=== PATIENT | female | born 1955 | race Caucasian/White ===

== ENCOUNTER → 2024-05-31 22:24 | Day surgery (SDC) | payer OTHER, SELFPAY ==
[2024-05-31 18:27] VITALS: BMI 37.5
--- NOTE | 2024-05-31 19:52 | ED.GENMED ---
History of Present Illness
General
Chief Complaint: Esophageal Problem
Source: patient
Exam Limitations: none
Time Seen by Provider: 05/31/24 19:44
Nursing documentation reviewed up to this point in time: agreed with
History of Present Illness
History of Present Illness:
Patient presents to ED secondary to persistent sensation of food being stuck sensation and difficulty tolerating saliva, after 3 bites of Frank B sandwich this afternoon at 12:00. Patient has attempted several water as well as jose angel gladys, without
relief in symptoms. Denies difficulty breathing. Denies fever. Denies trauma. Denies nausea or vomiting. Denies previous history of similar symptoms.
Past History
Past History
ED Past Medical History: Asthma, HTN, Hypercholesterolemia, NIDDM and Hypothyroidism
ED Past Surgical History: None
Social History
Tobacco: Non-smoker
Alcohol: None
Drug: None
Personal:
Living: with family
Family History
Family History: Other (reviewed and non-contributory)
Review of Systems
Review of Systems
Allergies reviewed?: Yes
All Other Systems: ROS reviewed and negative except as documented in HPI and ROS
Constitutional: Reports no symptoms
ABD/GI: Reports other (food impaction)
Musculoskeletal: Reports no symptoms
Skin: Reports no symptoms
Neurological: Reports no symptoms
Phy Exam
Physical Exam
Physical Exam:
Physical Exam
General: mild distress, not acutely ill. afebrile
Head: nc/at. eomi
Neck: supple. no meningeal signs. normal posterior pharynx
Heart: s1/s2 regular rate and rhythm, no murmur. equal radial pulses.
Lungs: no acute respiratory distress. clear bilaterally
Abdomen: normal bowel sounds. not tender.
Neuro: alert and oriented. no focal neurological deficits
Skin: no rash
Psychiatric: well kept. interactive and cooperative
Extremities: no edema. no calf tenderness.
Course
Orders/Labs/Results
Orders:
Orders
05/31/24 19:49
Glucagon [GlucaGen] 1 mg IV NOW STA
05/31/24 21:17
Dexamethasone Sod Phosphate [Decadron] 20 mg .ROUTE .STK-MED ONE
Lidocaine HCl/Pf [Xylocaine-Mpf 1% Vial] 50 mg .ROUTE .STK-MED ONE
Ondansetron Injectable [Zofran] 4 mg .ROUTE .STK-MED ONE
Propofol [Diprivan] 20 ml .ROUTE .STK-MED
Rocuronium Galien [Rocuronium] 50 mg .ROUTE .STK-MED ONE
Sugammadex Sodium [Bridion] 200 mg .ROUTE .STK-MED ONE
05/31/24 21:21
Glycopyrrolate [Robinul] 0.2 mg .ROUTE .STK-MED ONE
Phenylephrine HCl/0.9% NaCl [Prem-Synephrine] 1,000 mcg .ROUTE .STK-MED ONE
05/31/24 21:22
Propofol [Diprivan] 20 ml .ROUTE .STK-MED
05/31/24 22:12
Activity As Directed
Activity Level: Bedrest
Comment: bedrest until awake & alert then resume previous activity level
Vital Signs As Directed
Frequency: Post-operative guidelines
Vital Signs
Initial and Last Documented VS:
Initial Vital Signs
Temp Pulse Resp Pulse Ox
97.9 F 87 17 99
05/31/24 18:33 05/31/24 18:33 05/31/24 18:33 05/31/24 18:33
Last Documented Vital Signs
Temp Pulse Resp BP Pulse Ox
97.2 F 79 21 185/93 94
05/31/24 22:45 05/31/24 22:45 05/31/24 22:45 05/31/24 22:50 05/31/24 22:50
MDM/Problems Addressed
MDM/Problems Addressed:
Pt given glucagon in ED without improvement, still unable to tolerate sip of water.
Discussed with on-call GI physician, - will proceed to GI Lab
*Critical Care Note
Total Time (30-74mins, 75-104mins- exclusive of procedures): Not Applicable
ED Attending Note
-
Portions of this chart may have been created with voice recognition software.� Occasional wrong word or��sound alike� substitutions may have occurred due to the inherent limitations of voice recognition software.
Discharge Plan
Departure
Patient Disposition: GI LAB
Date of Disposition: 05/31/24
Time of Disposition: 21:07
Admit to: GI lab
Presentation/result/management discussed w/ accepting MD/DO:
Discharge Problem:
Food impaction of esophagus
Interventions
Interventions:
*Risk Screen - Suicide Last Done: 05/31/24 20:52
*General Assessment Last Done: 05/31/24 20:52
*Neglect/Abuse Screening Last Done: 05/31/24 20:52
*ED COVID-19 Vaccine History Last Done: 05/31/24 20:52
*Nursing Disposition Last Done: 05/31/24 21:37
OI-Rlkjmw-Bsfzrzezyx Assessment Last Done: 05/31/24 20:52
ED-EENT Assessment Last Done: 05/31/24 20:52
[2024-05-31] MEDS: GlucaGen 1 MG IV (20:27)
[2024-05-31 21:00] VITALS: BP 140/62
--- NOTE | 2024-05-31 21:45 | CON.GI ---
Consultation
-
Date/Time Consultation Requested: 05/31/24
Date/Time Consultation Performed: 05/31/24
Requesting Provider:
Performing Provider:
Reason for Consultation: food bolus impaction
Medical History
Chief Complaint / HPI
Chief Complaint: food bolus impaction
History of Present Illness:
This is a 68-year-old female with past medical history of asthma hypertension hyperlipidemia diabetes hypothyroidism who presented to the ER with food bolus impaction. She says she was on a wine tour earlier today and had eaten a couple of bites
Frank B sandwich this afternoon at 12:00. She says she tried warm water, jose angel gladys and hot tea without any improvement of symptoms and she has not been able to swallow and has been spitting up saliva since then. Prior to this she has not had any
symptoms of dysphagia, no symptoms of acid reflux. she never had a colonoscopy or endoscopy in the past. She also currently denies any chest pain or shortness of breath no abdominal pain.
Past Medical History
Past Medical History: Other (Asthma, HTN, Hypercholesterolemia, NIDDM and Hypothyroidism)
Past Surgical History: Other (none)
Social History
Tobacco: Non-Smoker
Alcohol: Occasional
Drug: None
Family History
Family History: Other (FH breast cancer, no colon cancer)
Allergies / Home Medications
Allergy/AdvReac Type Severity Reaction Status Date / Time
No Known Allergies Allergy Verified 05/31/24 18:32
�Medication �Instructions �Recorded
atorvastatin 10 mg tablet 10 mg PO DAILY 04/05/18
levothyroxine 125 mcg tablet 125 mcg PO DAILY 04/05/18
aspirin 81 mg tablet,delayed 81 mg PO DAILY ##30 04/09/18
release (Adult Low Dose Aspirin)
albuterol sulfate 90 mcg/actuation 2 puff inhalation R [id number] PRN sob 05/31/24
aerosol inhaler
budesonide-formoterol HFA 160 2 puff inhalation R BID 05/31/24
mcg-4.5 mcg/actuation aerosol
inhaler (Symbicort)
doxazosin 2 mg tablet 2 mg PO DAILY 05/31/24
insulin aspart U-100 100 unit/mL 28 units SC TID 05/31/24
(3 mL) subcutaneous pen (Novolog
FlexPen U-100 Insulin aspart)
insulin detemir U-100 100 unit/mL 50 unit SC HS 05/31/24
(3 mL) subcutaneous pen (Levemir
FlexPen)
lisinopril 20 2 tab PO DAILY 05/31/24
mg-hydrochlorothiazide 12.5 mg
tablet
metformin 500 mg tablet 1,000 mg PO BID 05/31/24
omega 7-cpx-bco-fish oil 1,000 mg 1 cap PO DAILY 05/31/24
(120 mg-180 mg) capsule (Fish Oil)
temazepam 30 mg capsule 30 mg PO HS 05/31/24
therapeutic multivitamin 1 tab PO DAILY 05/31/24
Review of Systems
-
All other systems: A 12 pt ROS was Negative except as stated above in HPI
Vital Signs
Temp Pulse Resp BP Pulse Ox
97.9 F 87 17 140/62 99
05/31/24 18:33 05/31/24 18:33 05/31/24 18:33 05/31/24 21:00 05/31/24 18:33
Physical Exam
Exam
General: No Apparent Distress and Other (spitting up saliva into bag)
HEENT: Normocephalic
Respiratory: Clear
Cardiac: S1/S2
GI: Soft, Non Tender, Non Distended and Normal Bowel Sounds
Musculoskeletal: No Clubbing
Skin: Warm
Neuro: Awake, Alert and Oriented
Psych: Calm
Results
Diagnostic Image Results:
Prior GI Procedures:
EGD: none
Colonoscopy: none
Assessment / Plan
-
Food bolus impaction after she had eaten a couple of bites of beef sandwich around 12 noon today. She has not been able to swallow her secretions since then and has been spitting up into a cup. Will schedule her for urgent endoscopy with food
bolus removal.
-
-
Thank you for consultation and allowing me to participate in the patient's care. Please call the refrigeration engineering teacher GI physician during the after hours with any questions or concerns.
[2024-05-31 22:20] VITALS: BP 145/62; BP 150/88
[2024-05-31 22:30] VITALS: BP 165/91
[2024-05-31 22:45] VITALS: BP 167/76
[2024-05-31 22:50] VITALS: BP 185/93
== END ==
LOC: EMR 18:27 → SDS 22:24
PROVIDERS: ATTENDING PHYSICIAN Emergency Medicine; FAMILY PHYSICIAN Family Medicine
DX: T18.128A Food in esophagus causing other injury, initial encounter (principal); W44.F3XA Food entering into or through a natural orifice, initial encounter
CPT/HCPCS: 43247; 93005; 96374; 99285; J1610

== ENCOUNTER → 2025-03-03 12:50 | Outpatient (REF) | payer OTHER, SELFPAY | LOC: HWRAD 12:50 | PROVIDERS: ATTENDING PHYSICIAN Family Medicine | DX: R91.1 Solitary pulmonary nodule (principal) | CPT/HCPCS: 71250 ==